=== PATIENT | female | born 1990 | race Caucasian/White ===

== ENCOUNTER 2025-03-21 12:14 | Inpatient (IN) | payer OTHER ==
[2025-03-21 13:30] LABS: Hematocrit 34.8 % (34.9-44.5); Hemoglobin 11.3 g/dL (12.0-15.5); Mean Corpuscular Hemoglobin 27.6 pg (27.0-33.0); Mean Corpuscular Volume 84.9 fL (81.6-98.3); Platelet Count 290 10x3/uL (150-450); Red Blood Cell (RBC) Count 4.10 10x6/uL (3.90-5.03); White Blood Cell (WBC) Count 13.18 10x3/uL (3.5-10.5)
[2025-03-21] MEDS ORDERED: Acetaminophen 500 MG TAB PO PRN (13:30)
[2025-03-21] MEDS ORDERED: Methylergonovine 0.2 MG/ML VIAL IM PRN (13:30)
[2025-03-21] MEDS ORDERED: hydrALAZINE 20 MG/ML VIAL SLOW IVP PRN ×2 (13:30→16:54)
[2025-03-21] MEDS ORDERED: Oxytocin 30 units/NS 500 ML 500 ML IV SCH (13:30)
[2025-03-21] MEDS ORDERED: Carboprost 250 MCG/ML AMP IM PRN (13:30)
[2025-03-21] MEDS ORDERED: Tranexamic Acid 1,000 MG/10 ML VIAL IVP PRN (13:30)
[2025-03-21] MEDS ORDERED: Ondansetron PF 4 MG/2 ML Vial IVP PRN (13:30)
[2025-03-21 14:14] LABS: Hep B Surf Ag - L&D Non-Reactive S/CO (NonReactive)
[2025-03-21 14:15] LABS: Syphilis Antibody Index 0.06 S/CO (<1.00 Non-Reactive)
[2025-03-21] MEDS: Ibuprofen 800 MG TAB PO SCH ×2 (15:37→22:40)
[2025-03-21] MEDS ORDERED: Lanolin Ointment 7 GM TUBE TOP PRN (16:54)
[2025-03-21] MEDS ORDERED: Milk Of Magnesia 30 ML UDCUP PO PRN (16:54)
[2025-03-21] MEDS ORDERED: Bisacodyl 10 MG SUPP PR PRN (16:54)
[2025-03-21] MEDS ORDERED: Benzocaine-Menthol 82.5 ML CAN TOP PRN (16:54)
[2025-03-21] MEDS: Lidocaine 1% (PF) 30 ML VIAL ONE (16:58)
[2025-03-21] MEDS: Ferrous Sulfate 325 MG TAB PO SCH (17:29)
[2025-03-21] MEDS ORDERED: Boostrix 0.5 ML (Tdap) VIAL (>/=7 yrs of age) IM ONE (21:00)
[2025-03-22] MEDS ORDERED: Ferrous Sulfate 325 MG TAB PO SCH (08:00)
[2025-03-22 11:50] VITALS: BP 128/77; TEMP 98
== END 2025-03-22 16:30 | disposition home or self-care (01) | DRG 807 ==
LOC: CSHLD/OP 12:14 → CSHLD 13:02 → CSHPED 16:52
PROVIDERS: ADMIT Obstetrics & Gynecology; ATTEND Obstetrics & Gynecology
PROC: 10E0XZZ Delivery of Products of Conception, External Approach (ICD-10-PCS; principal; 2025-03-21)
PROC: 0HQ9XZZ Repair Perineum Skin, External Approach (ICD-10-PCS; 2025-03-21)
DX: O70.0 First degree perineal laceration during delivery (principal); Z37.0 Single live birth; Z3A.39 39 weeks gestation of pregnancy; Z88.2 Allergy status to sulfonamides
CPT/HCPCS: 36415; 85027; 86780; 86850; 86900; 86901; 87340; 99285